=== PATIENT | female | born 1985 | race Caucasian/White ===

== ENCOUNTER 2018-09-04 05:16 | Emergency (ER) | payer OTHER, BC | END 2018-09-04 08:33 | disposition home or self-care (01) | LOC: M ED 05:16 | DX: J06.9 Acute upper respiratory infection, unspecified (principal); B34.9 Viral infection, unspecified; Z88.0 Allergy status to penicillin | CPT/HCPCS: 71046 ==

== ENCOUNTER → 2018-10-02 | Outpatient (CLI) | payer OTHER ==
[~2018-10-02] MED LIST: AFRI0.0511; BENZ200C70 PO; MUCI600T37 PO
--- NOTE | 2018-10-03 02:26 | REP ---
Clinical: Right-sided chest wall pain. Technique: Frontal view of the chest with multiple views of the right hemithorax. Findings: Frontal view of the chest demonstrates no acute cardiopulmonary process. Multiple views of the right hemithorax demonstrates no obvious acute rib fracture or pathology. Impression: Normal right rib series
== END ==
LOC: M CLY 10:27
PROVIDERS: ATTEND Family Medicine
DX: R07.89 Other chest pain (principal)

== ENCOUNTER 2018-10-28 06:51 | Emergency (ER) | payer OTHER ==
[~2018-10-28] VITALS: Ht 152.4 cm; Wt 72.7 kg
[2018-10-28] MEDS ORDERED: KETOROLAC 60 MG/2 ML VIAL (J1885) IM ONE (07:15)
[2018-10-28] MEDS ORDERED: NAPR-50 PO (07:32)
--- NOTE | 2018-10-28 08:04 | REP ---
Right knee series: Five views. History: Medial right knee pain after fall. Findings: Five views right knee show no evidence of fracture or subluxation. There is some medial soft tissue swelling on the sunrise view. Study is otherwise unremarkable. Impression: Medial swelling. Otherwise negative right knee radiographs. Electronically Signed by Garrison Ty MD 10/28/2018 07:56 A
--- NOTE | 2018-10-28 08:07 | REP ---
Right tib-fib series: Four views. History: Medial right knee pain after a fall. Findings: Four views of the right tibia and fibula demonstrate normal bones, joints, and soft tissues. No fracture or subluxation is seen. Impression: Negative right tib-fib radiographs. Electronically Signed by Garrison Ty MD 10/28/2018 07:59 A
[2018-10-28 08:08] VITALS: BP 119/74
== END 2018-10-28 08:15 | disposition home or self-care (01) ==
LOC: M ED 06:51
DX: S83.91XA Sprain of unspecified site of right knee, initial encounter (principal); W00.0XXA Fall on same level due to ice and snow, initial encounter; Y92.093 Driveway of other non-institutional residence as the place of occurrence of the external cause; Z88.0 Allergy status to penicillin
CPT/HCPCS: 73564; 73590; 96372; 99284; J1885

== ENCOUNTER → 2018-11-29 | Outpatient (CLI) | payer OTHER ==
[~2018-11-29] MED LIST changes: +NAPR-50 PO
--- NOTE | 2018-11-29 09:17 | REP ---
MRI RIGHT KNEE: TECHNIQUE: Axial proton density fat saturation, sagittal proton density T2 STIR, water excitation, coronal proton density, proton density fat saturation. I do not see evidence for a meniscal tear. There is mild increased signal within the anterior cruciate ligament compatible with a sprain. The posterior cruciate ligament is intact. There is increased signal involving the medial collateral ligament on T2-weighted images compatible with a sprain or partial tear. Lateral collateral ligament is intact. Extensor mechanism is intact. 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 There is no bone marrow edema or occult fracture. There is a small joint effusion. No popliteal cyst is seen. IMPRESSION: No evidence of meniscal tear. There appears to be a sprain of the anterior cruciate ligament. There is a sprain or partial tear of the medial collateral ligament. There is mild global chondromalacia along the femoral condyles. There is no occult fracture. There is a small joint effusion. Electronically Signed by Dc Recinos MD 12/02/2018 10:54 A
== END ==
LOC: M RAD 07:16
PROVIDERS: ATTEND Orthopaedic Surgery Sports Medicine
DX: S83.511A Sprain of anterior cruciate ligament of right knee, initial encounter (principal); S83.411A Sprain of medial collateral ligament of right knee, initial encounter; M25.461 Effusion, right knee; M94.261 Chondromalacia, right knee; Y93.9 Activity, unspecified; Y99.9 Unspecified external cause status; Y92.9 Unspecified place or not applicable; X58.XXXA Exposure to other specified factors, initial encounter

== ENCOUNTER → 2019-02-04 | Outpatient (REF) | payer OTHER ==
[~2019-02-04] MED LIST changes: -NAPR-50 PO; +NAPR-837 PO
== END ==
LOC: M SFHCLERA 16:05
PROVIDERS: ATTEND Physician Assistant
DX: R30.0 Dysuria (principal)